=== PATIENT | female | born 1990 | race Caucasian/White ===

== ENCOUNTER 2017-01-17 09:25 | Emergency (ER) | payer OTHER ==
[2017-01-17 10:35] LABS: HEMOGLOBIN 12.1 gm/dl (12.3-15.3)
== END 2017-01-17 12:46 | disposition left against medical advice (07) ==
LOC: ER1 09:25
PROVIDERS: Physician Assistant
DX: O20.0 Threatened abortion (principal); O99.331 Smoking (tobacco) complicating pregnancy, first trimester; F17.200 Nicotine dependence, unspecified, uncomplicated; Z90.49 Acquired absence of other specified parts of digestive tract; Z3A.01 Less than 8 weeks gestation of pregnancy
CPT/HCPCS: 36415; 76817; 81001; 84702; 85014; 85018; 86900; 86901; 99284

== ENCOUNTER 2020-06-04 14:55 | Emergency (ER) | payer OTHER ==
[2020-06-04 16:26] LABS: RED BLOOD COUNT 4.93 M/UL (4.00-5.10)
[2020-06-04 16:43] LABS: BUN/CREATININE RATIO 12 (0-10)
[2020-06-04] MEDS ORDERED: OMNICEF 300 MG300 MG PO (18:54)
[2020-06-04] MEDS ORDERED: BENTYL 20MG TAB20 MG PO (18:54)
[2020-06-04] MEDS ORDERED: ZOFRAN ODT 4 MG4 MG PO (18:54)
== END 2020-06-04 19:06 | disposition home or self-care (01) ==
LOC: ER1 14:55
PROVIDERS: Emergency Medicine
DX: K59.00 Constipation, unspecified (principal); N39.0 Urinary tract infection, site not specified; F17.200 Nicotine dependence, unspecified, uncomplicated; Z90.49 Acquired absence of other specified parts of digestive tract
CPT/HCPCS: 80053; 81001; 83605; 83690; 84703; 85025; 87077; 87086; 87186; 96365; 96368; 96375; 99284; J0696; J2270; J2405; J7030; Q9967